=== PATIENT | female | born 1990 | race Caucasian/White ===

== ENCOUNTER 2023-07-21 09:43 | Observation (INO) | payer OTHER ==
[2023-07-21 10:16] LABS: Appearance Clear (Clear); Bacteria None Seen /HPF (None Seen); Bilirubin Negative (Negative); Blood Negative (Negative); Epithelial Cells Rare /HPF (None Seen); Glucose, Urine Negative (Negative); Hyaline Casts NONE SEEN /LPF (0-2); Ketones Negative (Negative); Leukocyte Esterase Trace (Negative); Nitrite Negative (Negative); Protein,Urine Dip Negative (Negative); RBC 0-2 /HPF (0-5); Urobilinogen 0.2 mg/dL (0.2)
[2023-07-21 10:18] LABS: ADD URINE CULTURE? NO (NO)
[2023-07-21 10:21] VITALS: RESP 18; O2SAT 98
[2023-07-21 10:35] LABS: Amphetamine,Urine NEGATIVE (NEGATIVE); Barbiturate,Urine NEGATIVE (NEGATIVE); Benzodiazepine,Urine NEGATIVE (NEGATIVE); Cocaine,Urine NEGATIVE (NEGATIVE); Methadone,Urine NEGATIVE (NEGATIVE); Opiate,Urine NEGATIVE (NEGATIVE); PCP,Urine NEGATIVE (NEGATIVE); THC,Urine NEGATIVE (NEGATIVE)
[2023-07-21 10:42] LABS: AMNISURE TEST RESULTS NEGATIVE (NEGATIVE)
--- NOTE | 2023-07-21 11:48 | XRAY ---
Indication: 37 weeks gestation. Evaluate CECI. Limited OB ultrasound demonstrates single intrauterine with heart rate 165 BPM. Four-quadrant CECI is 12.1 cm, largest pocket 5.6 cm.
[2023-07-21 12:03] LABS: AMNISURE TEST RESULTS NEGATIVE (NEGATIVE)
[2023-07-21 12:25] LABS: Candida Group NOT DETECTED (NEGATIVE); Candida glab/krus NOT DETECTED (NEGATIVE)
[2023-07-21 12:33] VITALS: BP 93/54; PULSE 65; TEMP 97.5
--- NOTE | 2023-07-21 13:16 | PCM.HP ---
History of Present Illness - Chief Complaint Chief Complaint: IUP cramping Date: 07/21/23 History of Present Illness: is a 32 year old female at 37 1/7wks with cramping and some leakage of some clear fluid onto a pad. Notes good movement. No ble eding. Not really feeling any regular contractions. - Review of Systems Constitutional: No Fever Abdominal/Gastrointestinal: Abdominal Pain Genitourinary Symptoms: , Vaginal Discharge Medications & Allergies Home Medications: Home Medication List Pnv No.103/Folic/Om3s/Fish Oil [ Gummies] 1 gum PO DAILY 07/21/23 [History Confirmed 07/21/23] metroNIDAZOLE [Metronidazole] 500 mg PO BID #14 tablet 07/21/23 [Rx] Allergies/Adverse Reactions: Allergies Allergy/AdvReac Type Severity Reaction Status Date / Time No Known Drug Allergies Allergy Unverified 07/21/23 12:09 - Past Medical History Past Medical History: Yes - Female History Are you now?: Yes Expected Date of Delivery: 08/10/23 - Social History Smoking Status: Former smoker How long have you smoked: 2 years Exposure to second hand smoke: No - Physical Exam Vital Signs: Vital Signs - 24 hr Temp Pulse Resp BP BP Pulse Ox 07/21/23 12:32 97.5 F 65 18 93/54 98 07/21/23 11:42 97.8 F 89 18 113/69 98 07/21/23 09:43 97.8 F 89 18 113/69 98 General Appearance: no apparent distress, alert Neurologic Exam: alert Eye Exam: PERRL/EOMI Neck Exam: normal inspection Respiratory Exam: No respiratory distress Gastrointestinal/Abdomen Exam: soft (serial SVE unchanged over 2 hours by RN 4/50/-2, some clear fluid noted after exam) Skin Exam: normal color Additional Findings: 07/21/23 13:17 fetus vertex by RN SVE 07/21/23 13:17 monitoring category I, NST reactive with baseline 150s, +accels, no decels, moderate variability present, rare/irregular contractions Results - Labs Lab/Micro Results: Lab Results-Last 24 Hours 07/21/23 07/21/23 07/21/23 Range/Units 10:08 10:08 11:28 Urine Color Yellow (Yellow) Urine Appearance Clear (Clear) Urine pH 7.0 (4.6-8.0) Ur Specific [place] 1.010 (1.005-1.030) Urine Protein Negative (Negative) Urine Glucose (UA) Negative (Negative) mg/dL Urine Ketones Negative (Negative) Urine Blood Negative (Negative) Urine Nitrite Negative (Negative) Urine Bilirubin Negative (Negative) Urine Urobilinogen 0.2 (0.2) mg/dL Ur Leukocyte Esterase Trace A (Negative) U Hyaline Cast (Auto) NONE SEEN (0-2) /LPF Urine Microscopic RBC 0-2 (0-5) /HPF Urine Microscopic WBC 3-5 (0-5) /HPF Ur Epithelial Cells Rare (None Seen) /HPF Urine Bacteria None Seen (None Seen) /HPF Urine Culture Reflexed NO (NO) Vaginal Maryann Group NOT DETECTED (NEGATIVE) Urine Opiates Level NEGATIVE (NEGATIVE) Ur Methadone NEGATIVE (NEGATIVE) Urine Barbiturates NEGATIVE (NEGATIVE) Ur Phencyclidine (PCP) NEGATIVE (NEGATIVE) Urine Amphetamine NEGATIVE (NEGATIVE) U Benzodiazepine Level NEGATIVE (NEGATIVE) Urine Cocaine NEGATIVE (NEGATIVE) Urine Marijuana (THC) NEGATIVE (NEGATIVE) Maryann species NOT DETECTED (NEGATIVE) T. vaginalis (PCR) NOT DETECTED (NEGATIVE) Bact vaginosis (PCR) POSITIVE A (NEGATIVE) - Radiology Impressions Radiology Exams & Impressions: Radiology Procedures Category Date Time Status OB LIMITED [US] Stat Exams 07/21/23 10:51 Completed Limited OB ultrasound demonstrates single intrauterine with heart rate 165 BPM. Four-quadrant CECI is 12.1 cm, largest pocket 5.6 cm. Assessment/Plan (1) Bacterial vaginosis in Current Visit: Yes Status: Acute Assessment & Plan: 32 y/o at 37 1/7wks with cramping, not in labor after 2h labor check and not kandice regularly. ROM ruled out by Amnisure done x2 and negative, CECI 12cm. Vaginitis panel +for BV with neg yeast/trich, negative UA. Metronidazole rx sent x7d and to home with precautions given for labor, bleeding, ROM, and daily movement counts. Code(s): O23.599 - INFECTION OTH PRT GENITAL TRACT IN , UNSP TRIMESTER; B96.89 - OTH BACTERIAL AGENTS THE CAUSE OF DISEASES CLASSD ELSR
== END 2023-07-21 13:45 | disposition home or self-care (01) ==
LOC: OB 09:43
PROVIDERS: ADMIT Obstetrics & Gynecology; ATTEND Obstetrics & Gynecology
DX: Z34.83 Encounter for supervision of other normal pregnancy, third trimester (principal); Z3A.37 37 weeks gestation of pregnancy
CPT/HCPCS: 76815; 80307; 81001; 84112; 87481; 87661; 87801

== ENCOUNTER 2023-08-01 07:22 | Inpatient (IN) | payer OTHER ==
[2023-08-01 08:15] LABS: AMNISURE TEST RESULTS POSITIVE (NEGATIVE)
[2023-08-01] MEDS ORDERED: Ephedrine Sulfate 50 MG/ML IV PRN (08:21)
[2023-08-01] MEDS ORDERED: Zofran 4 MG/2 ML VIAL IV PRN (08:21)
[2023-08-01] MEDS ORDERED: XYLOCAINE 1% HCL 20 ML MDV IJ PRN (08:21)
[2023-08-01 08:22] LABS: ADD URINE CULTURE? NO (NO); Appearance Clear (Clear); Bacteria None Seen /HPF (None Seen); Bilirubin Negative (Negative); Blood Negative (Negative); Epithelial Cells None Seen /HPF (None Seen); Glucose, Urine Negative (Negative); Hyaline Casts NONE SEEN /LPF (0-2); Ketones Negative (Negative); Leukocyte Esterase Negative (Negative); Nitrite Negative (Negative); Ph 6.5 (4.6-8.0); Protein,Urine Dip Negative (Negative); RBC 0-2 /HPF (0-5); Specific Gravity <=1.005 (1.005-1.030); Urobilinogen 0.2 mg/dL (0.2); WBC 0-2 /HPF (0-5)
[2023-08-01] MEDS ORDERED: Lactated Ringers 1,000 ML IV ONE (08:35)
[2023-08-01] MEDS: Lactated Ringers 1,000 ML IV ONE (08:37)
[2023-08-01 08:44] LABS: Absolute Neutrophil Ct (ANC) 7.57 x10^3/uL (1.4-6.9); BASOPHIL % 0.5 % (0.0-0.4); Basophil (Absolute #) 0.05 x10^3/uL (0-0.4); Eosinophil % 1.4 % (0.00-5.0); Eosinophil (Absolute #) 0.14 x10^3/uL (0-0.5); Hematocrit 32.9 % (35-47); Hemoglobin 9.8 g/dL (12.0-16.0); IMMATURE GRAN # 0.08 x10^3u/L (0.00-0.03); IMMATURE GRAN % 0.8 % (0.00-0.4); Lymphocyte (Absolute #) 1.77 x10^3/uL (1.0-4.6); Lymphocytes % 17.3 % (24.0-44.0); Mean Cell Volume 79.5 fL (78-100); Mean Corpuscular Hemoglobin 23.7 pg (26-32); Mean Corpuscular Hgb Concent. 29.8 g/dL (32-36); Mean Platelet Volume 12.2 fL (7.5-11.0); Monocyte (Absolute #) 0.62 x10^3/uL (0.0-1.3); Monocytes % 6.1 % (0.0-12.0); NUCLEATED RBC # 0.02 x10^3u/L (0.00-0.01); NUCLEATED RBC % 0.2 % (0.00-0.1); Neutrophil % 73.9 % (36.0-66.0); Platelet Count 157 x10^3/uL (150-450); Red Blood Count 4.14 x10^6/uL (4.1-5.4); Red Cell Distribution Width 16.5 % (11.5-14.0); White Blood Count 10.2 x10^3/uL (4.0-10.5)
[2023-08-01 08:54] LABS: Amphetamine,Urine NEGATIVE (NEGATIVE); Barbiturate,Urine NEGATIVE (NEGATIVE); Benzodiazepine,Urine NEGATIVE (NEGATIVE); Cocaine,Urine NEGATIVE (NEGATIVE); Methadone,Urine NEGATIVE (NEGATIVE); Opiate,Urine NEGATIVE (NEGATIVE); PCP,Urine NEGATIVE (NEGATIVE); THC,Urine NEGATIVE (NEGATIVE)
[2023-08-01] MEDS: FENTANYL 2 MCG-BUPIV 0.125%-NS 250 ML Epidur 250 ML EPIDURAL SCH (09:06)
--- NOTE | 2023-08-01 09:30 | PCM.HP ---
History of Present Illness - Chief Complaint Chief Complaint: IUP 38 5/7 complaining of SROM. Patient reports good movement. Date: 08/01/23 History of Present Illness: is a 32 year old female. 32yo at 38 5/7 weeks experienced SROM at 6:00am. Patient presented to labor and delivery with contractions every 5 minutes. Patient reports goodf movement. - Review of Systems Constitutional: No Symptoms Respiratory: No Symptoms Abdominal/Gastrointestinal: No Symptoms Musculoskeletal: No Symptoms Psychological: No Symptoms Medications & Allergies Home Medications: Home Medication List Pnv No.103/Folic/Om3s/Fish Oil [ Gummies] 1 gum PO DAILY 07/21/23 [History Confirmed 07/21/23] Allergies/Adverse Reactions: Allergies Allergy/AdvReac Type Severity Reaction Status Date / Time No Known Drug Allergies Allergy Verified 08/01/23 08:26 - Past Medical History Past Medical History: Yes - Social History Smoking Status: Former smoker How long have you smoked: 2 years Exposure to second hand smoke: No - Physical Exam General Appearance: no apparent distress Neurologic Exam: alert, oriented x 3 Respiratory Exam: normal breath sounds, lungs clear Cardiovascular Exam: regular rate/rhythm, normal heart sounds Gastrointestinal/Abdomen Exam: soft, normal bowel sounds Pelvic Exam: other (CX: 5-6/100%-2) Extremity Exam: normal inspection, No pedal edema Additional Findings: 08/01/23 09:27 monitor: Baseline 135 with moderate variability. Patient was kandice every 5 minutes on admission. Patient received epiduaral. Contractions appear to have spaced out. Amnisure was positive. Patient maybe having early decelerations with contractions. Category I strip. If cervix doesn't change start pitocin augmentation of labor. Results - Labs Lab/Micro Results: Lab Results-Last 24 Hours 08/01/23 08/01/23 08/01/23 Range/Units 08:04 08:21 08:23 WBC 10.2 (4.0-10.5) x10^3/uL RBC 4.14 (4.1-5.4) x10^6/uL Hgb 9.8 L (12.0-16.0) g/dL Hct 32.9 L (35-47) % MCV 79.5 (78-100) fL MCH 23.7 L (26-32) pg MCHC 29.8 L (32-36) g/dL RDW 16.5 H (11.5-14.0) % Plt Count 157 (150-450) x10^3/uL MPV 12.2 H (7.5-11.0) fL Gran % 73.9 H (36.0-66.0) % Immature Gran % (Auto) 0.8 H (0.00-0.4) % Nucleat RBC Rel Count 0.2 H (0.00-0.1) % Eos # (Auto) 0.14 (0-0.5) x10^3/uL Immature Gran # (Auto) 0.08 H (0.00-0.03) x10^3u/L Absolute Lymphs (auto) 1.77 (1.0-4.6) x10^3/uL Absolute Monos (auto) 0.62 (0.0-1.3) x10^3/uL Absolute Nucleated RBC 0.02 H (0.00-0.01) x10^3u/L Lymphocytes % 17.3 L (24.0-44.0) % Monocytes % 6.1 (0.0-12.0) % Eosinophils % 1.4 (0.00-5.0) % Basophils % 0.5 (0.0-0.4) % Absolute Granulocytes 7.57 H (1.4-6.9) x10^3/uL Basophils # 0.05 (0-0.4) x10^3/uL Urine Color Yellow (Yellow) Urine Appearance Clear (Clear) Urine pH 6.5 (4.6-8.0) Ur Specific [place] <=1.005 (1.005-1.030) Urine Protein Negative (Negative) Urine Glucose (UA) Negative (Negative) mg/dL Urine Ketones Negative (Negative) Urine Blood Negative (Negative) Urine Nitrite Negative (Negative) Urine Bilirubin Negative (Negative) Urine Urobilinogen 0.2 (0.2) mg/dL Ur Leukocyte Esterase Negative (Negative) U Hyaline Cast (Auto) NONE SEEN (0-2) /LPF Urine Microscopic RBC 0-2 (0-5) /HPF Urine Microscopic WBC 0-2 (0-5) /HPF Ur Epithelial Cells None Seen (None Seen) /HPF Urine Bacteria None Seen (None Seen) /HPF Urine Culture Reflexed NO (NO) Urine Opiates Level NEGATIVE (NEGATIVE) Ur Methadone NEGATIVE (NEGATIVE) Urine Barbiturates NEGATIVE (NEGATIVE) Ur Phencyclidine (PCP) NEGATIVE (NEGATIVE) Urine Amphetamine NEGATIVE (NEGATIVE) U Benzodiazepine Level NEGATIVE (NEGATIVE) Urine Cocaine NEGATIVE (NEGATIVE) Urine Marijuana (THC) NEGATIVE (NEGATIVE) Assessment/Plan (1) Active labor at term Current Visit: Yes Status: Acute Onset Date: ~08/01/23 Assessment & Plan: IUP 38 10/24 with SROM and Active labor. Routine orders. Patient may have epidural. Pitocin augmentation if needed. Anticipate vaginal delivery. Code(s): [id number] -
[2023-08-01 09:31] LABS: ABO TYPING O; Antibody Screen NEGATIVE (NEGATIVE); RH TYPING POSITIVE
[2023-08-01] MEDS: Lactated Ringers 1,000 ML IV SCH (09:37)
[2023-08-01] MEDS ORDERED: PITOCIN 30 UNITS/ LR 500 ML 30 UNITS/500 ML PLAST..BAG IV SCH (10:00)
[2023-08-01] MEDS: PITOCIN 30 UNITS/ LR 500 ML 30 UNITS/500 ML PLAST..BAG IV SCH (10:32)
--- NOTE | 2023-08-01 16:27 | OP ---
OB OP NOTE - OPERATIVE NOTE Surgery Date: 08/01/23 Surgery Time: 15:52 PREOPERATIVE DIAGNOSIS: IUP 38 5/7 with SROM, Active Labor. POST OPERATIVE DIAGNOSIS: S/P with repair of second degree laceration. Procedure: over intact perineum. Second degree laceration with repair. Surgeon: DAVID HALL ANESTHESIA: Epidural CONDITION: Stable SPECIMEN: Living male, 1552 Apgars of 9/9. HISTORY - HISTORY HISTORY: HISTORY: 32 yo presented to labor and delivery complaining of SROM at 0600. Patient had clear fluid and positive Amnisure. Patient was admitted and progressed in labor. monitor strip was category I on admission. FINDINGS - FINDINGS FINDINGS: FINDINGS: Living male delivered over intact Perineum. Second degree laceration was repaired. Placenta delivered spontaneously, Intact, XAVIER. DESCRIPTION OF PROCEDURE - DESCRIPTION OF PROCEDURE DESCRIPTION OF PROCEDURE: DESCRIPTION OF PROCEDURE: Patient progressed in labor in a normal fashion. Patient became complete at 1300, but head was still -2. Patient labored down. Patient pushed for one hour and 44 minutes. Head delivered in the OA position over intact perineum. TIght nuchal cord times one would not reduce over the head. Cord clamped times two and cut. The head had restitution to KJ. The anterior shoulder was already under the pubic bone. The remainder of the infant delivered spontaneously. Living male with Apgars of 9/9. Pitocin started in IV. Placenta delivered spontaneously, Intact, XAVIER. Cervix inspected and found to be intact. There was a 2nd degree laceration to the left of the midline. 2-0 Vicryl in a 2 layer running fashion to repair the laceration. There was a stitch abcess noted from prior delivery. It was grasped and removed with scissiors. 2-0 Vicryl in interrupted fashion utilized to approximate skin at the introitus. Good approximation and hemostasis was present. Bilateral periurethral lacerations were noted and were hemostatic. Uterine massage performed and uterus was firm and below the umbilicus. QBL is 123cc. Patient is reseting in stable condition with on her chest.
[2023-08-01] MEDS ORDERED: CORTISONE 1% CREAM TP PRN (16:39)
[2023-08-01] MEDS ORDERED: Ambien 10 MG PO PRN (16:39)
[2023-08-01] MEDS ORDERED: Mylicon 80MG PO PRN (16:39)
[2023-08-01] MEDS ORDERED: Anucort-HC SUPPOSITORY PR PRN (16:39)
[2023-08-01] MEDS ORDERED: NORCO 5/325 MG PO PRN (16:39)
[2023-08-01] MEDS ORDERED: Restoril 15 MG PO PRN (16:39)
[2023-08-01] MEDS ORDERED: Dulcolax 10 MG SUPP PR PRN (16:39)
[2023-08-01] MEDS: Dermoplast Spray TP PRN (18:05)
[2023-08-01] MEDS: LANSINOH 40 GM TOP PRN (18:06)
[2023-08-01] MEDS: TUCKS TP PRN (18:06)
[2023-08-02] MEDS: Docusate Sodium 100 MG PO SCH (01:33)
[2023-08-02] MEDS: MOTRIN 400 MG PO PRN (01:56)
[2023-08-02] MEDS: TYLENOL EXTRA STRENGTH 500 MG PO PRN (01:57)
[2023-08-02 05:29] LABS: Absolute Neutrophil Ct (ANC) 8.99 x10^3/uL (1.4-6.9); BASOPHIL % 0.4 % (0.0-0.4); Basophil (Absolute #) 0.05 x10^3/uL (0-0.4); Eosinophil % 0.7 % (0.00-5.0); Eosinophil (Absolute #) 0.08 x10^3/uL (0-0.5); Hematocrit 29.7 % (35-47); Hemoglobin 8.9 g/dL (12.0-16.0); IMMATURE GRAN # 0.05 x10^3u/L (0.00-0.03); IMMATURE GRAN % 0.4 % (0.00-0.4); Lymphocyte (Absolute #) 1.92 x10^3/uL (1.0-4.6); Lymphocytes % 16.3 % (24.0-44.0); Mean Cell Volume 80.1 fL (78-100); Mean Platelet Volume 12.2 fL (7.5-11.0); Monocyte (Absolute #) 0.67 x10^3/uL (0.0-1.3); Monocytes % 5.7 % (0.0-12.0); Neutrophil % 76.5 % (36.0-66.0); Platelet Count 145 x10^3/uL (150-450); Red Blood Count 3.71 x10^6/uL (4.1-5.4); Red Cell Distribution Width 16.6 % (11.5-14.0); White Blood Count 11.8 x10^3/uL (4.0-10.5)
[2023-08-02] MEDS: FERREX 150 PO SCH (11:09)
[2023-08-02] MEDS: MOTRIN 600 MG PO PRN (14:48)
[2023-08-02] MEDS: Adacel Vial IM ONE (17:48)
[2023-08-02 21:41] VITALS: RESP 20
[2023-08-03 12:06] VITALS: BP 107/64; PULSE 81; TEMP 97.6; O2SAT 96
== END 2023-08-03 15:07 | disposition home or self-care (01) | DRG 807 ==
LOC: OBSVTOIN 07:22 → OB 07:22
PROVIDERS: ADMIT Obstetrics & Gynecology; ATTEND Obstetrics & Gynecology
PROC: 10E0XZZ Delivery of Products of Conception, External Approach (ICD-10-PCS; principal; 2023-08-01)
PROC: 0KQM0ZZ Repair Perineum Muscle, Open Approach (ICD-10-PCS; 2023-08-01)
DX: O70.1 Second degree perineal laceration during delivery (principal); Z37.0 Single live birth; O69.81X0 Labor and delivery complicated by cord around neck, without compression, not applicable or unspecified; Z3A.38 38 weeks gestation of pregnancy; Z20.828 Contact with and (suspected) exposure to other viral communicable diseases
CPT/HCPCS: 36415; 59409; 80307; 81001; 84112; 85025; 86850; 86900; 86901; 87086; 90715; J2590; A9270-GY

== ENCOUNTER 2024-10-15 11:30 | Observation (INO) | payer OTHER ==
[2024-10-15 12:10] VITALS: BP 105/66; PULSE 74; RESP 18; TEMP 97.6; O2SAT 96
[2024-10-15 12:21] LABS: Appearance Turbid (Clear); Bacteria None Seen /HPF (None Seen); Bilirubin Negative (Negative); Blood Negative (Negative); Epithelial Cells None Seen /HPF (None Seen); Glucose, Urine Negative (Negative); Hyaline Casts NONE SEEN /LPF (0-2); Ketones Negative (Negative); Leukocyte Esterase Negative (Negative); Nitrite Negative (Negative); Protein,Urine Dip Negative (Negative); RBC 0-2 /HPF (0-5); Specific Gravity 1.025 (1.005-1.030); WBC 0-2 /HPF (0-5)
[2024-10-15 13:00] LABS: Amphetamine,Urine NEGATIVE (NEGATIVE); Barbiturate,Urine NEGATIVE (NEGATIVE); Benzodiazepine,Urine NEGATIVE (NEGATIVE); Cocaine,Urine NEGATIVE (NEGATIVE); Methadone,Urine NEGATIVE (NEGATIVE); Opiate,Urine NEGATIVE (NEGATIVE); PCP,Urine NEGATIVE (NEGATIVE); THC,Urine NEGATIVE (NEGATIVE)
[2024-10-15] MEDS: ZOFRAN ODT 4 MG PO ONE (13:00)
== END 2024-10-15 13:15 | disposition home or self-care (01) ==
LOC: OB 11:30
PROVIDERS: ADMIT Obstetrics & Gynecology; ATTEND Obstetrics & Gynecology
DX: Z34.83 Encounter for supervision of other normal pregnancy, third trimester (principal); Z3A.36 36 weeks gestation of pregnancy
CPT/HCPCS: 80307; 81001; 87653; G0378; G0379; Q0162

== ENCOUNTER 2024-10-17 11:55 | Observation (INO) | payer OTHER ==
[2024-10-17] MEDS ORDERED: Zofran 4 MG/2 ML VIAL IV ONE (12:37)
[2024-10-17 13:05] LABS: Appearance Clear (Clear); Bacteria None Seen /HPF (None Seen); Bilirubin Negative (Negative); Blood Negative (Negative); Epithelial Cells Rare /HPF (None Seen); Glucose, Urine Negative (Negative); Hyaline Casts NONE SEEN /LPF (0-2); Ketones Negative (Negative); Leukocyte Esterase Trace (Negative); Nitrite Negative (Negative); Ph 7.5 (4.6-8.0); Protein,Urine Dip Negative (Negative); RBC 0-2 /HPF (0-5)
[2024-10-17 13:13] LABS: ALBUMIN 3.5 g/dL (3.5-5.0); ANION GAP 14.6 MEQ/L (5-15); BILIRUBIN,TOTAL 0.4 mg/dL (0.2-1.3); Calcium 8.2 mg/dL (8.4-10.2); Creatinine 1 0.41 mg/dL (0.52-1.04); EST GLOMERULAR FILTRATION RATE 133.1 ML/MIN; Potassium 3.6 mmol/L (3.5-5.1); Total Protein 6.3 g/dL (6.3-8.2)
[2024-10-17] MEDS: Lactated Ringers 1,000 ML IV STA (13:15)
[2024-10-17] MEDS: TYLENOL 325 MG PO STA (13:15)
[2024-10-17 16:53] VITALS: BP 104/63; PULSE 91; RESP 16; TEMP 98.2; O2SAT 94
== END 2024-10-17 16:20 | disposition home or self-care (01) ==
LOC: OB 11:55
PROVIDERS: ADMIT Obstetrics & Gynecology; ATTEND Obstetrics & Gynecology
DX: Z34.83 Encounter for supervision of other normal pregnancy, third trimester (principal); Z3A.37 37 weeks gestation of pregnancy
CPT/HCPCS: 36415; 80053; 81001; G0378; G0379; A9270-GY

== ENCOUNTER 2024-10-28 15:49 | Observation (INO) | payer OTHER ==
[2024-10-28 16:59] VITALS: BP 109/67; PULSE 83; RESP 17; TEMP 97.9; O2SAT 96
== END 2024-10-28 17:00 | disposition home or self-care (01) ==
LOC: OB 15:49
PROVIDERS: ADMIT Obstetrics & Gynecology; ATTEND Obstetrics & Gynecology
DX: Z34.83 Encounter for supervision of other normal pregnancy, third trimester (principal); Z3A.38 38 weeks gestation of pregnancy
CPT/HCPCS: G0378; G0379

== ENCOUNTER 2024-10-29 07:31 | Inpatient (IN) | payer OTHER ==
[2024-10-29] MEDS ORDERED: Ephedrine Sulfate 50 MG/ML IV PRN (12:40)
[2024-10-29] MEDS ORDERED: Nubain 10 MG/ML IV PRN (21:00)
[2024-10-29] MEDS ORDERED: XYLOCAINE 1% HCL 20 ML MDV IJ PRN (21:00)
[2024-10-29] MEDS ORDERED: STADOL 2 MG IV PRN (21:00)
[2024-10-29] MEDS ORDERED: BRETHINE 1 MG/ML SQ PRN (21:00)
[2024-10-29] MEDS ORDERED: Zofran 4 MG/2 ML VIAL IV PRN (21:00)
[2024-10-29 21:30] LABS: Absolute Neutrophil Ct (ANC) 5.94 x10^3/uL (1.56-6.13); BASOPHIL % 0.3 % (0.1-1.2); Basophil (Absolute #) 0.03 x10^3/uL (0.01-0.08); Eosinophil % 1.5 % (0.7-5.8); Eosinophil (Absolute #) 0.14 x10^3/uL (0.04-0.36); Hematocrit 32.4 % (34.1-44.9); Hemoglobin 10.2 g/dL (11.2-15.7); IMMATURE GRAN # 0.06 x10^3u/L (0.001-0.031); IMMATURE GRAN % 0.7 % (0.001-0.429); Lymphocyte (Absolute #) 2.27 x10^3/uL (1.18-3.74); Lymphocytes % 24.8 % (19.3-51.7); Mean Cell Volume 77.1 fL (79.4-94.8); Mean Corpuscular Hemoglobin 24.3 pg (25.6-32.2); Mean Corpuscular Hgb Concent. 31.5 g/dL (32.2-35.5); Mean Platelet Volume 11.4 fL (9.4-12.3); Monocyte (Absolute #) 0.71 x10^3/uL (0.24-0.86); Monocytes % 7.8 % (4.7-12.5); Neutrophil % 64.9 % (34.0-71.1); Platelet Count 173 x10^3/uL (182-369); Red Cell Distribution Width 16.1 % (11.7-14.4); White Blood Count 9.2 x10^3/uL (3.98-10.04)
[2024-10-29 22:07] LABS: Amphetamine,Urine NEGATIVE (NEGATIVE); Barbiturate,Urine NEGATIVE (NEGATIVE); Benzodiazepine,Urine NEGATIVE (NEGATIVE); Cocaine,Urine NEGATIVE (NEGATIVE); Methadone,Urine NEGATIVE (NEGATIVE); Opiate,Urine NEGATIVE (NEGATIVE); PCP,Urine NEGATIVE (NEGATIVE); THC,Urine NEGATIVE (NEGATIVE)
[2024-10-29 22:40] LABS: ABO TYPING O; Antibody Screen NEGATIVE (NEGATIVE); RH TYPING POSITIVE
[2024-10-29] MEDS: SODIUM CHLORIDE 0.9% IV ONE (22:46)
[2024-10-29] MEDS: OMNIPEN IV ONE (22:46)
[2024-10-30] MEDS: SODIUM CHLORIDE 0.9% IV SCH (02:51)
[2024-10-30] MEDS: OMNIPEN IV SCH (02:51)
[2024-10-30] MEDS: Lactated Ringers 1,000 ML IV ONE (06:26)
[2024-10-30] MEDS: Lactated Ringers 1,000 ML IV SCH (06:37)
[2024-10-30] MEDS: FENTANYL 2 MCG-BUPIV 0.125%-NS 250 ML Epidur 250 ML EPIDURAL SCH (07:00)
[2024-10-30] MEDS: PITOCIN 30 UNITS/ LR 500 ML 30 UNITS/500 ML PLAST..BAG IV SCH (07:32)
[2024-10-30 09:04] LABS: Appearance Clear (Clear); Bacteria None Seen /HPF (None Seen); Bilirubin Negative (Negative); Blood Negative (Negative); Epithelial Cells Rare /HPF (None Seen); Glucose, Urine Negative (Negative); Hyaline Casts NONE SEEN /LPF (0-2); Ketones Negative (Negative); Leukocyte Esterase Negative (Negative); Nitrite Negative (Negative); Ph 6.5 (4.6-8.0); Protein,Urine Dip Negative (Negative); RBC 0-2 /HPF (0-5); Urobilinogen 0.2 mg/dL (0.2)
[2024-10-30] MEDS ORDERED: CORTISONE 1% CREAM TP PRN (13:00)
[2024-10-30] MEDS: Dermoplast Spray TP PRN (13:31)
[2024-10-30] MEDS: LANSINOH 40 GM TOP PRN (13:31)
[2024-10-30] MEDS: TUCKS TP PRN (13:31)
[2024-10-30] MEDS: MOTRIN 400 MG PO PRN (18:57)
[2024-10-30] MEDS: TYLENOL EXTRA STRENGTH 500 MG PO PRN (20:38)
[2024-10-30 20:55] VITALS: O2SAT 97
[2024-10-30] MEDS: Docusate Sodium 100 MG PO SCH (21:46)
[2024-10-31 05:15] LABS: Absolute Neutrophil Ct (ANC) 8.81 x10^3/uL (1.56-6.13); BASOPHIL % 0.3 % (0.1-1.2); Basophil (Absolute #) 0.04 x10^3/uL (0.01-0.08); Eosinophil (Absolute #) 0.24 x10^3/uL (0.04-0.36); Hematocrit 30.9 % (34.1-44.9); Hemoglobin 9.8 g/dL (11.2-15.7); IMMATURE GRAN # 0.05 x10^3u/L (0.001-0.031); IMMATURE GRAN % 0.4 % (0.001-0.429); Lymphocyte (Absolute #) 1.86 x10^3/uL (1.18-3.74); Lymphocytes % 15.6 % (19.3-51.7); Mean Corpuscular Hemoglobin 25.1 pg (25.6-32.2); Mean Corpuscular Hgb Concent. 31.7 g/dL (32.2-35.5); Mean Platelet Volume 11.4 fL (9.4-12.3); Monocyte (Absolute #) 0.89 x10^3/uL (0.24-0.86); Monocytes % 7.5 % (4.7-12.5); Neutrophil % 74.2 % (34.0-71.1); Platelet Count 152 x10^3/uL (182-369); Red Blood Count 3.91 x10^6/uL (3.93-5.22); Red Cell Distribution Width 16.2 % (11.7-14.4); White Blood Count 11.9 x10^3/uL (3.98-10.04)
--- NOTE | 2024-10-31 07:40 | PCM.NOTE ---
Date and Time: 10/31/24 0739 Subjective Assessment: ppd 1 sp pt resting in bed and doing well able to ambulate and tolerate diet vss afebrile abd; soft uterus; firm lochia; mild hgb; 9.8 a/p sp ppd 1 stable for discharge today should fu in office in 3 wks Objective Data Vital Signs: Vital Signs - 24 hr Temp Pulse Resp BP BP Pulse Ox 10/31/24 02:30 98.6 F 85 20 96/57 97 10/30/24 20:00 98.1 F 76 18 111/60 97 10/30/24 14:30 97.7 F 70 18 102/58 99 10/30/24 14:00 97.9 F 69 18 95/51 99 10/30/24 13:00 97.5 F 87 18 111/61 98 10/30/24 12:30 97.5 F 62 18 92/54 100 10/30/24 11:58 97.5 F 68 18 112/60 100 10/30/24 11:45 97.5 F 55 L 18 104/59 98 10/30/24 11:30 97.5 F 57 L 18 104/59 96 10/30/24 11:15 97.5 F 60 18 91/55 100 10/30/24 11:00 97.5 F 60 18 110/56 100 10/30/24 10:45 97.5 F 65 18 113/58 100 10/30/24 10:35 97.9 F 71 18 100 10/30/24 10:15 97.9 F 70 18 99/59 100 10/30/24 10:00 97.9 F 68 18 114/61 100 10/30/24 09:45 97.9 F 66 18 113/58 100 10/30/24 09:30 97.9 F 75 18 107/51 100 10/30/24 09:15 97.9 F 66 18 100/59 98 10/30/24 09:00 97.9 F 78 18 106/59 98 10/30/24 08:45 97.9 F 75 18 110/60 98 10/30/24 08:30 81 18 104/58 97 10/30/24 08:15 64 18 109/46 98 10/30/24 08:00 93 H 18 98/55 109/46 96 10/30/24 07:45 71 18 91/55 99 Pain Assessment - Last Documented Pain Intensity [ABDOMEN] 4 Pain Intensity 2 Pain Scale Used 0-10 Pain Scale Intake and Output: Intake & Output 10/28/24 10/29/24 10/30/24 10/31/24 11:59 11:59 11:59 11:59 Intake Total 2350 2200 Output Total 350 300 Balance 2000 1900 Weight 81.647 kg Lab Results: Lab Results-Last 24 Hours 10/30/24 10/31/24 Range/Units 08:55 05:10 WBC 11.9 H (3.98-10.04) x10^3/uL RBC 3.91 L (3.93-5.22) x10^6/uL Hgb 9.8 L (11.2-15.7) g/dL Hct 30.9 L (34.1-44.9) % MCV 79.0 L (79.4-94.8) fL MCH 25.1 L (25.6-32.2) pg MCHC 31.7 L (32.2-35.5) g/dL RDW 16.2 H (11.7-14.4) % Plt Count 152 L (182-369) x10^3/uL MPV 11.4 (9.4-12.3) fL Gran % 74.2 H (34.0-71.1) % Immature Gran % (Auto) 0.4 (0.001-0.429) % Nucleat RBC Rel Count 0.0 (0.00-0.2) % Eos # (Auto) 0.24 (0.04-0.36) x10^3/uL Immature Gran # (Auto) 0.05 H (0.001-0.031) x10^3u/L Absolute Lymphs (auto) 1.86 (1.18-3.74) x10^3/uL Absolute Monos (auto) 0.89 H (0.24-0.86) x10^3/uL Absolute Nucleated RBC 0.00 (0.00-0.012) x10^3u/L Lymphocytes % 15.6 L (19.3-51.7) % Monocytes % 7.5 (4.7-12.5) % Eosinophils % 2.0 (0.7-5.8) % Basophils % 0.3 (0.1-1.2) % Absolute Granulocytes 8.81 H (1.56-6.13) x10^3/uL Basophils # 0.04 (0.01-0.08) x10^3/uL Urine Color Yellow (Yellow) Urine Appearance Clear (Clear) Urine pH 6.5 (4.6-8.0) Ur Specific [place] 1.020 (1.005-1.030) Urine Protein Negative (Negative) Urine Glucose (UA) Negative (Negative) mg/dL Urine Ketones Negative (Negative) Urine Blood Negative (Negative) Urine Nitrite Negative (Negative) Urine Bilirubin Negative (Negative) Urine Urobilinogen 0.2 (0.2) mg/dL Ur Leukocyte Esterase Negative (Negative) U Hyaline Cast (Auto) NONE SEEN (0-2) /LPF Urine Microscopic RBC 0-2 (0-5) /HPF Urine Microscopic WBC 3-5 (0-5) /HPF Ur Epithelial Cells Rare (None Seen) /HPF Urine Bacteria None Seen (None Seen) /HPF Urine Culture Reflexed ORDERED SEPARATELY (NO) Medications: Medications Generic Name Dose Route Start Last Admin Trade Name Freq PRN Reason Stop Dose Admin Acetaminophen 1,000 mg 10/29/24 21:00 10/30/24 20:38 Acetaminophen 500 Mg Tablet PO 11/28/24 20:59 1,000 mg Q4H PRN PRN Administration HEADACHE/MILD PAIN/ FEVER Benzocaine 40 gm 10/30/24 13:00 10/30/24 13:31 Benzocaine/Lanolin/Aloe Vera 85 Gm Can TP 11/29/24 12:59 40 gm UD PRN Administration ALEC CARE Diphtheria/Tetanus/Acell Pertussis 0.5 ml 10/31/24 10:00 Tdap --Diph,Pertuss(Acell),Tet Vac/Pf 0.5 Ml Vial IM 10/31/24 10:01 .ONCE ONE Docusate Sodium 100 mg 10/30/24 22:00 10/30/24 21:46 Docusate Sodium 100 Mg Capsule PO 11/29/24 21:59 100 mg BID TANIYA Administration Emollient Ointment 0 gm 10/30/24 13:00 10/30/24 13:31 Lansinoh 40 Gm Tube TOP 11/29/24 12:59 40 gm PRN PRN Administration PAIN Hydrocortisone 0.5 gm 10/30/24 13:00 Hydrocortisone 1% Cream 28 Gm Tube TP 11/29/24 12:59 PRN PRN ITCHING Ibuprofen 800 mg 10/30/24 13:00 10/31/24 02:28 Ibuprofen 400 Mg Tablet PO 11/29/24 12:59 800 mg Q6H PRN PRN Administration MODERATE PAIN Polysaccharide Iron Complex 150 mg 10/31/24 10:00 Iron Polysaccharides Complex 150 Mg Capsule PO 11/30/24 09:59 DAILY TANIYA Brett Luu 1 pad 10/30/24 13:00 10/30/24 13:31 Brett Luu 1 Pad Med..Pad TP 11/29/24 12:59 1 pad PRN PRN Administration ITCHING Discontinued Medications Generic Name Dose Route Start Last Admin Trade Name Freq PRN Reason Stop Dose Admin Butorphanol Tartrate 1 mg 10/29/24 21:00 Butorphanol Tartrate 2 Mg/Ml Vial IV 11/28/24 20:59 Q4H PRN PRN MODERATE PAIN Ephedrine Sulfate 10 mg 10/29/24 12:40 Ephedrine Sulfate 50 Mg/Ml IV 11/28/24 12:39 PRN PRN SBP<100 Lactated Ringer's 1,000 mls @ 999 mls/hr 10/29/24 12:40 10/30/24 06:26 Lactated Ringers IV 10/29/24 13:40 999 mls/hr .Q1H1M ONE Administration FENTANYL/BUPIVACAINE/NS/PF 250 mls @ 0 mls/hr 10/29/24 12:45 10/30/24 07:00 Fentanyl 2 Mcg-Bupiv 0.125%-Ns 250 Ml Epidur EPIDURAL 11/28/24 12:44 10 mls/hr .Q0M TANIYA Administration Protocol Titrate Oxytocin/Lactated Ringer's 30 units in 500 mls @ 0 mls/hr 10/29/24 21:00 10/30/24 07:32 Pitocin 30 Units/ Lr 500 Ml IV 11/28/24 20:59 2 mls/hr .Q0M TANIYA Administration Protocol Titrate Ampicillin Sodium 2 g/ Sodium 100 mls @ 200 mls/hr 10/29/24 21:00 10/29/24 22:46 Chloride IV 10/29/24 21:29 200 mls/hr ONCE ONE Administration Ampicillin Sodium 1 gm/ Sodium 100 mls @ 200 mls/hr 10/30/24 01:00 10/30/24 10:25 Chloride IV 11/02/24 00:59 Not Given Q4H TANIYA Lactated Ringer's 1,000 mls @ 125 mls/hr 10/29/24 21:00 10/30/24 06:37 Lactated Ringers IV 11/28/24 20:59 125 mls/hr .Q8H TANIYA Administration Lidocaine HCl 10 ml 10/29/24 21:00 Lidocaine Hcl 1% 20 Ml Mdv 20 Ml Ml IJ 11/28/24 20:59 PRN PRN as needed Nalbuphine HCl 5 - 10 mg 10/29/24 21:00 Nalbuphine Hcl 10 Mg/Ml Ampul IV 11/28/24 20:59 Q4H PRN PRN PAIN Ondansetron HCl 4 mg 10/29/24 21:00 Ondansetron Hcl 4 Mg/2 Ml Vial IV 11/28/24 20:59 Q4H PRN PRN NAUSEA/VOMITING Terbutaline Sulfate 0.25 mg 10/29/24 21:00 Terbutaline Sulfate 1 Mg/Ml Vial SQ 11/28/24 20:59 PRN PRN FOR HYPERSTIMULATION Assessment/Plan (1) Vaginal delivery Current Visit: Yes Status: Acute Code(s): O80 - ENCOUNTER FOR FULL-TERM UNCOMPLICATED DELIVERY
--- NOTE | 2024-10-31 07:44 | PCM.DS ---
Discharge Summary Date of Admission: 10/30/24 07:31 Admitting Physician: SHAGUFTA FARIAS DO Consults: Consults on Case 10/29/24 12:41 Notify Anesthesia Provider PRN 10/30/24 11:14 Navigation ONCE Primary Care Provider: NO FAMILY DOCTOR Allergies Allergies No Known Drug Allergies Allergy (Verified 10/30/24 00:45) Hospital Summary - Hospital Course Hospital Course: pt admitted on october 29 at 38 6/7 wks gestation for induction for advanced dilitation and was noted being 4-5cm upon admission with hx of gbs positive during this . pt was started on antibiotic and pitocin started. pt subsequently delivered on october 30 without complication delviering live baby boy via with 1st degree perineal tear repaired with 2-0 chromic suture. during period did well able to ambulate and tolerate diet with stable vitals and stable hgb at 9.8. pt at this time stable for discharge and was advised to fu in office in 3 wks. all questions answered to her satisfaction - Vitals & Intake/Output Vital Signs: Vital Signs Temperature 98.6 F 10/31/24 02:30 Pulse Rate 85 10/31/24 02:30 Respiratory Rate 20 10/31/24 02:30 Blood Pressure 96/57 10/31/24 02:30 O2 Sat by Pulse Oximetry 97 10/31/24 02:30 Intake & Output: Intake & Output 10/28/24 10/29/24 10/30/24 10/31/24 11:59 11:59 11:59 11:59 Intake Total 2350 2200 Output Total 350 300 Balance 2000 1900 Weight 81.647 kg - Lab Result Diagrams: 10/31/24 05:10 Lab Results-Last 24 Hrs: Lab Results-Last 24 Hours 10/30/24 10/31/24 Range/Units 08:55 05:10 WBC 11.9 H (3.98-10.04) x10^3/uL RBC 3.91 L (3.93-5.22) x10^6/uL Hgb 9.8 L (11.2-15.7) g/dL Hct 30.9 L (34.1-44.9) % MCV 79.0 L (79.4-94.8) fL MCH 25.1 L (25.6-32.2) pg MCHC 31.7 L (32.2-35.5) g/dL RDW 16.2 H (11.7-14.4) % Plt Count 152 L (182-369) x10^3/uL MPV 11.4 (9.4-12.3) fL Gran % 74.2 H (34.0-71.1) % Immature Gran % (Auto) 0.4 (0.001-0.429) % Nucleat RBC Rel Count 0.0 (0.00-0.2) % Eos # (Auto) 0.24 (0.04-0.36) x10^3/uL Immature Gran # (Auto) 0.05 H (0.001-0.031) x10^3u/L Absolute Lymphs (auto) 1.86 (1.18-3.74) x10^3/uL Absolute Monos (auto) 0.89 H (0.24-0.86) x10^3/uL Absolute Nucleated RBC 0.00 (0.00-0.012) x10^3u/L Lymphocytes % 15.6 L (19.3-51.7) % Monocytes % 7.5 (4.7-12.5) % Eosinophils % 2.0 (0.7-5.8) % Basophils % 0.3 (0.1-1.2) % Absolute Granulocytes 8.81 H (1.56-6.13) x10^3/uL Basophils # 0.04 (0.01-0.08) x10^3/uL Urine Color Yellow (Yellow) Urine Appearance Clear (Clear) Urine pH 6.5 (4.6-8.0) Ur Specific [place] 1.020 (1.005-1.030) Urine Protein Negative (Negative) Urine Glucose (UA) Negative (Negative) mg/dL Urine Ketones Negative (Negative) Urine Blood Negative (Negative) Urine Nitrite Negative (Negative) Urine Bilirubin Negative (Negative) Urine Urobilinogen 0.2 (0.2) mg/dL Ur Leukocyte Esterase Negative (Negative) U Hyaline Cast (Auto) NONE SEEN (0-2) /LPF Urine Microscopic RBC 0-2 (0-5) /HPF Urine Microscopic WBC 3-5 (0-5) /HPF Ur Epithelial Cells Rare (None Seen) /HPF Urine Bacteria None Seen (None Seen) /HPF Urine Culture Reflexed ORDERED SEPARATELY (NO) Micro Results-Entire Visit: Microbiology 10/30/24 08:55 Urine Culture - Preliminary Catherized NO GROWTH TO DATE Final Diagnosis/Problem List - Final Discharge Diagnosis/Problem (1) Vaginal delivery Current Visit: Yes Status: Acute Code(s): O80 - ENCOUNTER FOR FULL-TERM UNCOMPLICATED DELIVERY - Discharge Disposition: Home, Self-Care Condition: Stable Prescriptions: No Action Pnv No.103/Folic/Om3s/Fish Oil [ Gummies] 1 gum PO DAILY Metformin HCl 500 mg [Glucophage 500 MG] 250 mg PO HS Follow up with: DOCTOR,NO FAMILY [Primary Care Provider, UNKNOWN] SHAGUFTA FARIAS DO [ACTIVE STAFF, OBSTETRICS-GYNECOLOGY] - 3 weeks Referral Note: should fu in office in 3 wks
[2024-10-31 09:33] LABS: RPR Non Reactive (Non Reactive)
[2024-10-31] MEDS: FERREX 150 PO SCH (09:34)
[2024-10-31] MEDS: Adacel Vial IM ONE (11:04)
[2024-10-31 18:49] VITALS: PULSE 76
[2024-10-31 22:01] VITALS: BP 103/58; RESP 20; TEMP 97.7
== END 2024-10-31 21:00 | disposition home or self-care (01) | DRG 806 ==
LOC: OB 07:31 → OBSVTOIN 10-30 07:31
PROVIDERS: ADMIT Obstetrics & Gynecology; ATTEND Obstetrics & Gynecology
PROC: 10E0XZZ Delivery of Products of Conception, External Approach (ICD-10-PCS; principal; 2024-10-30)
PROC: 0HQ9XZZ Repair Perineum Skin, External Approach (ICD-10-PCS; 2024-10-30)
DX: O70.0 First degree perineal laceration during delivery (principal); O98.82 Other maternal infectious and parasitic diseases complicating childbirth; Z37.0 Single live birth; Z3A.38 38 weeks gestation of pregnancy
CPT/HCPCS: 36415; 59409; 59426; 80307; 81001; 82947; 85025; 86592; 86850; 86900; 86901; 87086; 90471; 90715; 99213; G0378; G0379; J0290; J2590; A9270-GY